=== PATIENT | female | born 1960 | race Caucasian/White ===

== ENCOUNTER 2025-02-08 13:44 | Outpatient (CLI) | payer MEDICARE | END 2025-02-08 13:45 | disposition home or self-care (01) | LOC: CSHULT 13:44 | PROVIDERS: ATTEND Internal Medicine | DX: R01.1 Cardiac murmur, unspecified (principal); R94.31 Abnormal electrocardiogram [ECG] [EKG]; I51.9 Heart disease, unspecified | CPT/HCPCS: 93306 ==